=== PATIENT | female | born 1995 | race African-American/Black ===

== ENCOUNTER 2022-05-22 23:42 | Emergency (ER) | payer SELFPAY | END 2022-05-23 00:37 | disposition home or self-care (01) | LOC: CSHERS 23:42 | DX: J06.9 Acute upper respiratory infection, unspecified (principal); F17.290 Nicotine dependence, other tobacco product, uncomplicated | CPT/HCPCS: 71045 ==

== ENCOUNTER 2022-06-05 18:01 | Emergency (ER) | payer SELFPAY ==
[2022-06-05] MEDS ORDERED: Ketorolac Tromethamine 30 MG/ML VIAL ONE (18:29)
== END 2022-06-05 18:45 | disposition home or self-care (01) ==
LOC: CSHERS 18:01
DX: S16.1XXA Strain of muscle, fascia and tendon at neck level, initial encounter (principal); F17.290 Nicotine dependence, other tobacco product, uncomplicated; X50.9XXA Other and unspecified overexertion or strenuous movements or postures, initial encounter
CPT/HCPCS: 96372; J1885